=== PATIENT | female | born 1975 | race Caucasian/White ===

== ENCOUNTER 2016-05-01 09:13 | Emergency (ER) | payer OTHER ==
[~2016-05-01 09:13] MED LIST: HYDROCODON-ACE1 EA16 PO
[2016-05-01] MEDS ORDERED: CALCIUM500 M4 PO (10:14)
[2016-05-01] MEDS ORDERED: OXYCODONE-ACET1 EAC3 PO (11:03)
== END 2016-05-01 11:34 ==
LOC: EDMED 09:13
DX: S82.141A Displaced bicondylar fracture of right tibia, initial encounter for closed fracture (principal); X58.XXXA Exposure to other specified factors, initial encounter